=== PATIENT | male | born 1960 | race Caucasian/White ===

== ENCOUNTER 2020-05-17 10:33 | Emergency (ER) | payer BC ==
[2020-05-17] MEDS ORDERED: MORPHINE SULFATE 4 MG INJ IM ONE (10:54)
[2020-05-17] MEDS ORDERED: MORPHINE SULFATE 4 MG INJ ONE (11:07)
--- NOTE | 2020-05-17 11:42 | ERPHSYRPT ---
- History of Present Illness Time Seen by Provider: 05/17/20 10:33 Source: patient Exam Limitations: no limitations Patient Subjective Stated Complaint: Pt states "I slipped on the ice yesterday and hit my back, it got better but last night I rolled over and felt a pop in my lower right ribs." Triage Nursing Assessment: PT presented alert and oriented X 3, skin pwd Pt ambulates with an upright steady gait, able to speak in clear full sentences pt has tenderness to the right lower posterior rib. Physician History: 59 years old male presented in the ER with chief complaint of right lower chest/flank pain since yesterday after he slipped on ice and fell against steps edges. Did not hit his head. No loss of consciousness. Patient did not have much pain until last night when he heard a popping sound in the right lower chest/abdominal area when he took a turn and since then is moderate to severe sharp shooting pain which is aggravated with deep breathing, movements, ambulation and better with being still. Denies any nausea vomiting cough shortness of breath. Denies any back pain. No injury anywhere else. Occurred: yesterday Reason for Fall: slipped Injuries/Pain Location: chest, abdomen Loss of Consciousness: no loss of consciousness Quality: sharpness Severity of Pain-Max: moderate Severity of Pain-Current: moderate Modifying Factors: Improves With: immobilization, rest. Worsens With: movement Associated Symptoms (Fall): abdominal pain, muscle spasms, No back pain, No s hortness of breath Allergies/Adverse Reactions: bee venom protein (honey bee) Allergy (Severe, Verified 05/17/20 10:46) Swelling Hx Tetanus, Diphtheria Vaccination/Date Given: No Hx Influenza Vaccination/Date Given: No Hx Pneumococcal Vaccination/Date Given: No Immunizations Up to Date: Yes Travel Risk - International Travel Have you traveled outside of the country in past 3 weeks: No - Coronavirus Screening Are you exhibiting any of the following symptoms?: No Close contact with a COVID-19 positive Pt in past 14-21 Days: No - Review of Systems Constitutional: No Symptoms Eyes: No Symptoms Ears, Nose, & Throat: No Symptoms Respiratory: No Symptoms Cardiac: Chest Pain Abdominal/Gastrointestinal: Abdominal Pain Genitourinary Symptoms: No Symptoms Musculoskeletal: Myalgias Skin: No Symptoms Neurological: No Symptoms Psychological: No Symptoms Endocrine: No Symptoms Hematologic/Lymphatic: No Symptoms Immunological/Allergic: No Symptoms - Past Medical History Neurological History: No Pertinent History Cardiac History: No Pertinent History Respiratory History: No Pertinent History Endocrine Medical History: No Pertinent History Musculoskeletal History: Osteoarthritis Other Medical History: History of B knee OA. - Past Surgical History Past Surgical History: Yes Other Surgical History: left arm - Social History Smoking Status: Former smoker Exposure to second hand smoke: No Drug Use: none Patient Lives Alone: No - Nursing Vital Signs Nursing Vital Signs: Initial Vital Signs Temperature 97.9 F 05/17/20 10:38 Pulse Rate 66 05/17/20 10:38 Respiratory Rate 22 05/17/20 10:38 Blood Pressure 202/110 05/17/20 10:38 O2 Sat by Pulse Oximetry 96 05/17/20 10:38 Pain Scale Pain Intensity 2 - [place] Coma Score Best Eye Response ([place]): (4) open spontaneously Best Verbal Response (Chaitanya): (5) oriented Best Motor Response (Chaitanya): (6) obeys commands [place] Total: 15 - Physical Exam General Appearance: no apparent distress, alert Head Injury: no evidence of injury Eye Exam: PERRL/EOMI, eyes nml inspection ENT Exam: airway nml, evidence of ENT injury Neck Exam: supple, trachea midline, full range of motion, normal alignment Respiratory/Chest Exam: chest tenderness (Right lower anterolateral ribs. No crepitus.), normal breath sounds, No subcutaneous emphysema, No paradoxical movements Cardiovascular Exam: normal heart sounds, regular rate/rhythm Gastrointestinal Exam: soft, normal bowel sounds, tenderness (Right flank/right upper quadrant) Back Exam: normal inspection, normal range of motion Extremity Exam: normal inspection, normal range of motion Neurologic Exam: alert, oriented x 3, cooperative Skin Exam: normal color, warm SpO2 Interpretation: normal SpO2: 96 O2 Delivery: Room Air Ordered Tests: Active Orders 24 hr Category Date Time Status ABDOMEN AND PELVIS W CONTRAST [CT] Stat Exams 05/17/20 11:18 Taken CHEST WITH CONTRAST [CT] Stat Exams 05/17/20 11:18 Taken RIBS UNILATERAL Stat Exams 05/17/20 11:14 Taken CBC W DIFF Stat Lab 05/17/20 11:45 Completed CMP Stat Lab 05/17/20 11:45 Completed UA W/RFX UR CULTURE Stat Lab 05/17/20 12:25 Completed Medication Summary Discontinued Medications Generic Name Dose Route Start Last Admin Trade Name Osiris PRN Reason Stop Dose Admin Clonidine 0.2 mg 05/17/20 12:36 05/17/20 12:42 Catapres 0.1 Mg PO 05/17/20 12:37 0.2 mg STAT ONE Administration Clonidine Confirm 05/17/20 12:41 Catapres 0.1 Mg Administered 05/17/20 12:42 Dose 0.2 mg .ROUTE .STK-MED ONE Morphine Sulfate 4 mg 05/17/20 10:54 05/17/20 11:12 Morphine Sulfate 4 Mg Inj IM 05/17/20 10:55 4 mg STAT ONE Administration Morphine Sulfate Confirm 05/17/20 11:07 Morphine Sulfate 4 Mg Inj Administered 05/17/20 11:08 Dose 4 mg .ROUTE .STK-MED ONE Lab/Rad Data: Laboratory Result Diagrams 05/17/20 11:45 05/17/20 11:45 Laboratory Results 05/17/20 05/17/20 05/17/20 Range/Units 12:25 11:45 11:45 WBC 7.3 (4.0-10.5) K/mm3 RBC 5.07 (4.1-5.6) M/mm3 Hgb 14.9 (12.5-18.0) gm/dl Hct 44.4 (42-50) % MCV 87.6 (78-100) fl MCH 29.4 (26-32) pg MCHC 33.6 (32-36) g/dl RDW 12.7 (11.5-14.0) % Plt Count 245 (150-450) K/mm3 MPV 9.6 (7.5-11.0) fl Gran % 59.5 (36.0-66.0) % Eos # (Auto) 0.37 (0-0.5) Absolute Lymphs (auto) 2.08 (1.0-4.6) Absolute Monos (auto) 0.50 (0.0-1.3) Lymphocytes % 28.3 (24.0-44.0) % Monocytes % 6.8 (0.0-12.0) % Eosinophils % 5.0 (0.00-5.0) % Basophils % 0.4 (0.0-0.4) % Absolute Granulocytes 4.36 (1.4-6.9) Basophils # 0.03 (0-0.4) Sodium 137 (137-145) mmol/L Potassium 3.8 (3.5-5.1) mmol/L Chloride 104 (98-107) mmol/L Carbon Dioxide 23 (22-30) mmol/L Anion Gap 14.2 (5-15) MEQ/L BUN 17 (9-20) mg/dL Creatinine 0.77 (0.66-1.25) mg/dL Estimated GFR > 60.0 ML/MIN Glucose 158 H (74-106) mg/dL Calcium 9.1 (8.4-10.2) mg/dL Total Bilirubin 0.50 (0.2-1.3) mg/dL AST 32 (17-59) U/L ALT 40 (0-50) U/L Alkaline Phosphatase 67 (38-126) U/L Serum Total Protein 7.9 (6.3-8.2) g/dL Albumin 4.6 (3.5-5.0) g/dL Urine Color YELLOW (YELLOW) Urine Appearance CLEAR (CLEAR) Urine pH 5.0 (5-6) Ur Specific [place] 1.057 (1.005-1.025) Urine Protein NEGATIVE (Negative) Urine Ketones NEGATIVE (NEGATIVE) Urine Blood NEGATIVE (0-5) Amadou/ul Urine Nitrite NEGATIVE (NEGATIVE) Urine Bilirubin NEGATIVE (NEGATIVE) Urine Urobilinogen NEGATIVE (0-1) mg/dL Ur Leukocyte Esterase NEGATIVE (NEGATIVE) Urine WBC (Auto) NONE (0-5) /HPF Urine RBC (Auto) NONE (0-2) /HPF U Epithel Cells (Auto) NONE (FEW) /HPF Urine Bacteria (Auto) NONE (NEGATIVE) /HPF Urine Mucus (Auto) SLIGHT (NEGATIVE) /HPF Urine Culture Reflexed NO (NO) Urine Glucose NEGATIVE (NEGATIVE) mg/dL - Progress Progress: improved, pain not gone completely, re-examined Progress Note: 05/17/20 13:19 59 years old is evaluated for fall with right lower rib/flank area tenderness. He is given morphine for symptomatic relief. X-rays showed 11th rib fracture wi th no pneumothorax. With lower rib fractures right next to the liver and flank tenderness I have obtained CT chest and abdomen pelvis with contrast which ruled out any acute intrathoracic and intra-abdominal pathology/bleed. Patient is feeling better on reevaluation. Patient blood pressure was 202/115 which did not improve with pain medication. I have given him clonidine and improved to 159 systolic. Patient report he does not take any blood pressure medication but with this high blood pressure I think patient has hypertension, I would start him on small dose of Cozaar and clonidine to take as needed. Recommended blood pressure monitoring and outpatient follow-up with his primary care for reevaluation. At this point he does not have any headache chest pain/shortness of breath or abdominal pain suggesting acute endorgan compromise. Discussed signs symptoms of worsening needing return to ER which he seems understanding. Stable for discharge. Counseled pt/family regarding: lab results, diagnosis, need for follow-up, rad results - Departure Departure Disposition: Home Clinical Impression: Uncontrolled hypertension Rib fracture Qualifiers: Encounter type: initial encounter Rib fracture type: single rib Fracture type: closed Laterality: right Qualified Code(s): S22.31XA - Fracture of one rib, right side, initial encounter for closed fracture Fall Qualifiers: Encounter type: initial encounter Qualified Code(s): W19.XXXA - Unspecified fall, initial encounter Condition: Stable Critical Care Time: No Referrals: DOCTOR,NO FAMILY [NON-STAFF PHY W/O PRIVILEGES] - BRADEN VANG MD [Primary Care Provider] - (1-2 DAYS FOR RE EVALUATION) Instructions: High Blood Pressure in Adults, Rib Fracture (DC) Additional Instructions: Do deep breathing exercises. Monitor your blood pressure regularly, keep a log and follow-up with primary care. Take pain medications as needed. Take clonidine 0.1 mg for blood pressure greater than 160 systolic and do not take more than 2 pills in 24 hours each 8 hours apart. Return to ER if for u ncontrolled hypertension or if you develop headache, visual disturbance, chest pain or shortness of breath. Prescriptions: Clonidine HCl 0.1 mg [Catapres 0.1 MG] 0.1 mg PO Q12H PRN PRN 10 Days #10 tablet PRN Reason: Hypertension Losartan Potassium [Cozaar] 25 mg PO DAILY #30 tablet Hydrocodone/Acetaminophen [[place] 7.5-325 Tablet] 1 each PO Q4-6HPRN PRN 3 Days #12 tablet MDD 4 PRN Reason: Pain
[2020-05-17 12:07] LABS: Absolute Neutrophil Ct (ANC) 4.36 (1.4-6.9); BASOPHIL % 0.4 % (0.0-0.4); Basophil (Absolute #) 0.03 (0-0.4); Eosinophil (Absolute #) 0.37 (0-0.5); Hematocrit 44.4 % (42-50); Hemoglobin 14.9 gm/dl (12.5-18.0); Lymphocyte (Absolute #) 2.08 (1.0-4.6); Lymphocytes % 28.3 % (24.0-44.0); Mean Cell Volume 87.6 fl (78-100); Mean Corpuscular Hemoglobin 29.4 pg (26-32); Mean Corpuscular Hgb Concent. 33.6 g/dl (32-36); Mean Platelet Volume 9.6 fl (7.5-11.0); Monocytes % 6.8 % (0.0-12.0); Neutrophil % 59.5 % (36.0-66.0); Platelet Count 245 K/mm3 (150-450); Red Blood Count 5.07 M/mm3 (4.1-5.6); Red Cell Distribution Width 12.7 % (11.5-14.0); White Blood Count 7.3 K/mm3 (4.0-10.5)
[2020-05-17 12:24] LABS: ALBUMIN 4.6 g/dL (3.5-5.0); ALKALINE PHOSPHATASE 67 U/L (38-126); ANION GAP 14.2 MEQ/L (5-15); BLOOD UREA NITROGEN 17 mg/dL (9-20); CHLORIDE 104 mmol/L (98-107); Calcium 9.1 mg/dL (8.4-10.2); Carbon Dioxide 23 mmol/L (22-30); Creatinine 1 0.77 mg/dL (0.66-1.25); EST GLOMERULAR FILTRATION RATE > 60.0 ML/MIN; Glucose 158 mg/dL (74-106); Potassium 3.8 mmol/L (3.5-5.1); SGOT/AST 32 U/L (17-59); SGPT/ALT 40 U/L (0-50); SODIUM 137 mmol/L (137-145); Total Protein 7.9 g/dL (6.3-8.2)
[2020-05-17] MEDS ORDERED: Catapres 0.1 MG PO ONE (12:36)
[2020-05-17] MEDS ORDERED: Catapres 0.1 MG ONE (12:41)
[2020-05-17 13:07] LABS: Appearance CLEAR (CLEAR); Bilirubin NEGATIVE (NEGATIVE); Blood NEGATIVE Ery/ul (0-5); Glucose NEGATIVE (NEGATIVE); Ketones NEGATIVE (NEGATIVE); Leukocyte Esterase NEGATIVE (NEGATIVE); Mucus SLIGHT /HPF (NEGATIVE); Nitrite NEGATIVE (NEGATIVE); Protein,Urine Dip NEGATIVE (Negative); Specific Gravity 1.057 (1.005-1.025); Urobilinogen NEGATIVE mg/dL (0-1)
[2020-05-17 13:33] VITALS: BP 150/106; PULSE 76
[2020-05-17 13:53] VITALS: O2SAT 96
--- NOTE | 2020-05-17 18:35 | XRAY ---
Indication: Right rib/right upper quadrant pain following fall. Multiple contiguous axial images obtained through the abdomen and pelvis using 100 cc Isovue 370 contrast. Comparison: None CT chest reported separately. Noncontrasted stomach and bowel loops appear nonobstructed. No free fluid/air. Remaining liver, gallbladder, pancreas, spleen, adrenal glands, kidneys, ureters, and bladder appear normal in CT appearance and attenuation. Minimal scattered aortoiliac calcifications. No AAA or pathological retroperitoneal lymphadenopathy. Nondisplaced right posterior 11 rib fracture and healing right 12 rib fracture. Remaining osseous structures are unremarkable Impression: 1. Nondisplaced right 11 rib fracture and healing right 12 rib fracture[address] 2[address] Remaining CT abdomen/pelvis with contrast exam is negative. Comment: Preliminary interpretation was made by [facility]. No critical discrepancy.
--- NOTE | 2020-05-17 18:35 | XRAY ---
Indication: Pain following fall. Comparison: None 2 view right ribs demonstrates nondisplaced 11 rib fracture. No other bony, articular, or soft tissue abnormalities.
--- NOTE | 2020-05-17 18:38 | XRAY ---
Indication: Right rib/right upper quadrant pain following fall. Multiple contiguous axial images obtained through the chest using 100 cc Isovue 370 contrast. Comparison: None Lungs demonstrates minimal bilateral dependent atelectasis. No suspicious pulmonary mass, infiltrate, effusion, or pneumothorax. Heart is not enlarged. Aorta is normal in course and caliber. No pathologic mediastinal/hilar lymphadenopathy. Bony thorax demonstrates nondisplaced posterior right [address] abdomen/pelvis reported separately. Impression: Nondisplaced right [address] chest with contrast exam is negative. Comment: Preliminary interpretation was made by [facility]. No critical discrepancy.
== END 2020-05-17 13:33 | disposition home or self-care (01) ==
LOC: ED 10:33
DX: S22.31XA Fracture of one rib, right side, initial encounter for closed fracture (principal); R07.9 Chest pain, unspecified; W00.0XXA Fall on same level due to ice and snow, initial encounter; M79.10 Myalgia, unspecified site; I10 Essential (primary) hypertension
CPT/HCPCS: 36000; 36415; 71100; 71260; 74177; 80053; 81001; 85025; 96372; 99284; J2270; A9270-GY

== ENCOUNTER 2021-04-10 18:33 | Observation (INO) | payer BC ==
--- NOTE | 2021-04-10 19:03 | ERPHSYRPT ---
- History of Present Illness Time Seen by Provider: 04/10/21 18:57 Source: patient, family Exam Limitations: no limitations Patient Subjective Stated Complaint: Pt is positive for covid and his oxygen was dropping to 88-89% at home and he was having difficulty breathing so he came to the ER Triage Nursing Assessment: Pt brought to the ER by his , tachycardic, tachypnic, febrile, was tested positive for covid 04/02/2021, skin clammy, pulses bounding, non productive cough Physician History: Pt is recent Covid 8 days out now with increasing SObreath and now fever. No prior PE or CAD reported per pt. No abd pain or symptoms,. got down in upper 80s on home pulse Ox and in ER initial but now 90s on RA. no steroids yet per pt. Timing/Duration: today Severity of Dyspnea-Max: moderate Severity of Dyspnea-Current: moderate Possible Cause: no prior episodes Associated Symptoms: cough, fever Allergies/Adverse Reactions: bee venom protein (honey bee) Allergy (Severe, Verified 04/10/21 18:45) Swelling Hx Tetanus, Diphtheria Vaccination/Date Given: No Hx Influenza Vaccination/Date Given: No Hx Pneumococcal Vaccination/Date Given: No Travel Risk - International Travel Have you traveled outside of the country in past 3 weeks: No - Coronavirus Screening Are you exhibiting any of the following symptoms?: Yes Symptoms: Fever, Cough: New Onset, Shortness of Breath, Loss of Taste or Smell - Vaccine Status Have you recieved a Covid-19 vaccination: No - Review of Systems Constitutional: No Fever, No Chills Eyes: No Symptoms Ears, Nose, & Throat: No Symptoms Respiratory: Cough, Dyspnea Cardiac: No Chest Pain, No Edema, No Syncope Abdominal/Gastrointestinal: No Abdominal Pain, No Nausea, No Vomiting, No Diarrhea Genitourinary Symptoms: No Dysuria Musculoskeletal: No Back Pain, No Neck Pain Skin: No Rash Neurological: No Dizziness, No Focal Weakness, No Sensory Changes Psychological: No Symptoms Endocrine: No Symptoms All Other Systems: Reviewed and Negative - Past Medical History Pertinent Past Medical History: Yes Neurological History: No Pertinent History Cardiac History: No Pertinent History Respiratory History: No Pertinent History Endocrine Medical History: No Pertinent History Musculoskeletal History: Osteoarthritis Other Medical History: History of B knee OA. - Past Surgical History Past Surgical History: Yes Other Surgical History: left arm - Social History Smoking Status: Former smoker Exposure to second hand smoke: No Drug Use: none Patient Lives Alone: No - Nursing Vital Signs Nursing Vital Signs: Initial Vital Signs Temperature 101.5 F 04/10/21 18:34 Pulse Rate 104 H 04/10/21 18:34 Respiratory Rate 39 H 04/10/21 18:34 Blood Pressure 124/81 04/10/21 18:34 O2 Sat by Pulse Oximetry 93 L 04/10/21 18:34 Pain Scale Pain Intensity 0 - Physical Exam General Appearance: no apparent distress, alert Eye Exam: PERRL/EOMI Ears, Nose, Throat Exam: normal pharynx Neck Exam: normal inspection, supple Respiratory Exam: airway intact, rhonchi Cardiovascular/Chest Exam: normal heart sounds, regular rate/rhythm Abdominal/Gastrointestinal Exam: soft, No tenderness, No distention, No mass Extremity Exam: non-tender, normal range of motion, normal inspection, no calf tenderness, no pedal edema Peripheral Pulses Exam: carotid (R): 2+, carotid (L): 2+, femoral (R): 2+, femoral (L): 2+, dorsalis-pedis (R): 2+, dorsalis-pedis (L): 2+ Neurologic Exam: alert, oriented x 3, cooperative, potato chip maker II-XII nml as tested, normal mood/affect, nml cerebellar function, nml station & gait, sensation nml, No motor deficits Skin Exam: normal color, warm, No dry SpO2 Interpretation: borderline oxygenation SpO2: 93 O2 Delivery: Room Air - Course Nursing assessment & vital signs reviewed: Yes EKG Interpreted by Me: Sinus Tach, NORMAL AXIS, NORMAL INTERVALS, Non-specific ST Changes, Other (low voltage) - Radiology Exams Chest X-ray Interpretation: Interpreted by me, Reviewed by me, Pneumonia (Covid) - CT Exams Chest CT Interpretation: Tele-radiologist Report, No PE, Pneumonia (Covid) Ordered Tests: Active Orders 24 hr Category Date Time Status Physicist Astrophysics STAT Care 04/10/21 19:06 Active EKG-ER Only STAT Care 04/10/21 19:04 Active IV Insertion STAT Care 04/10/21 19:04 Active Pulse Oximetry (ED) STAT Care 04/10/21 19:04 Active CHEST 1 VIEW (PORTABLE) Stat Exams 04/10/21 19:05 Taken CHEST WITH CONTRAST [CT] Stat Exams 04/10/21 19:48 Taken CBC W DIFF Stat Lab 04/10/21 19:24 Completed CMP Stat Lab 04/10/21 19:24 Completed D-DIMER QUANTITATIVE Stat Lab 04/10/21 19:24 Completed INFLUENZA A+B RUSSELL Stat Lab 04/10/21 19:25 Completed Lactic Acid Stat Lab 04/10/21 19:04 Completed Manual Differential NC Stat Lab 04/10/21 19:24 Completed NT PRO BNP Stat Lab 04/10/21 19:24 Completed TROPONIN Q3H Lab 04/10/21 19:24 Completed TROPONIN Q3H Lab 04/10/21 22:30 Received TROPONIN Q3H Lab 04/11/21 01:15 Ordered TROPONIN Q3H Lab 04/11/21 04:15 Ordered TROPONIN Q3H Lab 04/11/21 07:15 Ordered UA W/RFX UR CULTURE Stat Lab 04/10/21 20:02 Completed Medication Summary Generic Name Dose Route Start Last Admin Trade Name Freq PRN Reason Stop Dose Admin Sodium Chloride 1,000 mls @ 100 mls/hr 04/10/21 19:15 04/10/21 19:15 Sodium Chloride 0.9% 1000 Ml IV 05/10/21 19:14 100 mls/hr .Q10H DEVONTE Administration Discontinued Medications Generic Name Dose Route Start Last Admin Trade Name Freq PRN Reason Stop Dose Admin Methylprednisolone Sodium 0 mg 04/10/21 19:04 04/10/21 19:14 Succinate 125 mg/ Sterile IV 04/10/21 19:05 125 mg Water 2 ml STAT ONE Administration Methylprednisolone Sodium Succinate Confirm 04/10/21 19:11 Methylprednis Sod Succ 125 Mg/2 Ml Vial Administered 04/10/21 19:12 Dose 125 mg .ROUTE .STK-MED ONE Lab/Rad Data: Laboratory Result Diagrams 04/10/21 19:24 04/10/21 19:24 Laboratory Results 04/10/21 04/10/21 04/10/21 Range/Units 20:02 19:25 19:24 WBC (4.0-10.5) K/mm3 RBC (4.1-5.6) M/mm3 Hgb (12.5-18.0) gm/dl Hct (42-50) % MCV (78-100) fl MCH (26-32) pg MCHC (32-36) g/dl RDW (11.5-14.0) % Plt Count (150-450) K/mm3 MPV (7.5-11.0) fl Segmented Neutrophils (36.-66.) % Band Neutrophils (0.0-2.0) % Lymphocytes (Manual) (24-44) % Monocytes (Manual) (0.0-12.0) % Atypical Lymphocytes % Platelet Estimate (NORMAL) RBC Morphology D-Dimer (215-500) ng/mL Sodium (137-145) mmol/L Potassium (3.5-5.1) mmol/L Chloride (98-107) mmol/L Carbon Dioxide (22-30) mmol/L Anion Gap (5-15) MEQ/L BUN (9-20) mg/dL Creatinine (0.66-1.25) mg/dL Estimated GFR ML/MIN Glucose (74-106) mg/dL Lactic Acid (0.4-2.0) Calcium (8.4-10.2) mg/dL Total Bilirubin (0.2-1.3) mg/dL AST (17-59) U/L ALT (0-50) U/L Alkaline Phosphatase (38-126) U/L Troponin I < 0.012 (0.000-0.034) ng/mL NT-Pro-B Natriuret Pep (0-900) pg/mL Serum Total Protein (6.3-8.2) g/dL Albumin (3.5-5.0) g/dL Urine Color YELLOW (YELLOW) Urine Appearance SLIGHTLY CLOUDY (CLEAR) Urine pH 5.0 (5-6) Ur Specific [place] 1.019 (1.005-1.025) Urine Protein 30 (Negative) Urine Ketones NEGATIVE (NEGATIVE) Urine Blood NEGATIVE (0-5) Amadou/ul Urine Nitrite NEGATIVE (NEGATIVE) Urine Bilirubin NEGATIVE (NEGATIVE) Urine Urobilinogen NEGATIVE (0-1) mg/dL Ur Leukocyte Esterase NEGATIVE (NEGATIVE) Urine WBC (Auto) NONE (0-5) /HPF Urine RBC (Auto) NONE (0-2) /HPF U Epithel Cells (Auto) NONE (FEW) /HPF Urine Bacteria (Auto) NONE SEEN (NEGATIVE) /HPF Urine Mucus (Auto) SLIGHT (NEGATIVE) /HPF Urine Culture Reflexed NO (NO) Urine Glucose NEGATIVE (NEGATIVE) mg/dL Influenza Type A Ag NEGATIVE (NEGATIVE) Influenza Type B Ag NEGATIVE (NEGATIVE) 04/10/21 04/10/21 04/10/21 Range/Units 19:24 19:24 19:24 WBC 5.1 (4.0-10.5) K/mm3 RBC 4.91 (4.1-5.6) M/mm3 Hgb 14.5 (12.5-18.0) gm/dl Hct 42.7 (42-50) % MCV 87.0 (78-100) fl MCH 29.5 (26-32) pg MCHC 34.0 (32-36) g/dl RDW 11.9 (11.5-14.0) % Plt Count 167 (150-450) K/mm3 MPV 10.0 (7.5-11.0) fl Segmented Neutrophils 67 H (36.-66.) % Band Neutrophils 4 H (0.0-2.0) % Lymphocytes (Manual) 16 L (24-44) % Monocytes (Manual) 7 (0.0-12.0) % Atypical Lymphocytes 6 % Platelet Estimate NORMAL (NORMAL) RBC Morphology NORMAL D-Dimer 661 H* (215-500) ng/mL Sodium 127 L (137-145) mmol/L Potassium 4.0 (3.5-5.1) mmol/L Chloride 92 L (98-107) mmol/L Carbon Dioxide 25 (22-30) mmol/L Anion Gap 14.0 (5-15) MEQ/L BUN 24 H (9-20) mg/dL Creatinine 1.13 (0.66-1.25) mg/dL Estimated GFR > 60.0 ML/MIN Glucose 114 H (74-106) mg/dL Lactic Acid (0.4-2.0) Calcium 8.6 (8.4-10.2) mg/dL Total Bilirubin 0.60 (0.2-1.3) mg/dL AST 47 (17-59) U/L ALT 43 (0-50) U/L Alkaline Phosphatase 73 (38-126) U/L Troponin I (0.000-0.034) ng/mL NT-Pro-B Natriuret Pep 23.9 (0-900) pg/mL Serum Total Protein 6.9 (6.3-8.2) g/dL Albumin 4.1 (3.5-5.0) g/dL Urine Color (YELLOW) Urine Appearance (CLEAR) Urine pH (5-6) Ur Specific [place] (1.005-1.025) Urine Protein (Negative) Urine Ketones (NEGATIVE) Urine Blood (0-5) Amadou/ul Urine Nitrite (NEGATIVE) Urine Bilirubin (NEGATIVE) Urine Urobilinogen (0-1) mg/dL Ur Leukocyte Esterase (NEGATIVE) Urine WBC (Auto) (0-5) /HPF Urine RBC (Auto) (0-2) /HPF U Epithel Cells (Auto) (FEW) /HPF Urine Bacteria (Auto) (NEGATIVE) /HPF Urine Mucus (Auto) (NEGATIVE) /HPF Urine Culture Reflexed (NO) Urine Glucose (NEGATIVE) mg/dL Influenza Type A Ag (NEGATIVE) Influenza Type B Ag (NEGATIVE) 04/10/21 Range/Units 19:04 WBC (4.0-10.5) K/mm3 RBC (4.1-5.6) M/mm3 Hgb (12.5-18.0) gm/dl Hct (42-50) % MCV (78-100) fl MCH (26-32) pg MCHC (32-36) g/dl RDW (11.5-14.0) % Plt Count (150-450) K/mm3 MPV (7.5-11.0) fl Segmented Neutrophils (36.-66.) % Band Neutrophils (0.0-2.0) % Lymphocytes (Manual) (24-44) % Monocytes (Manual) (0.0-12.0) % Atypical Lymphocytes % Platelet Estimate (NORMAL) RBC Morphology D-Dimer (215-500) ng/mL Sodium (137-145) mmol/L Potassium (3.5-5.1) mmol/L Chloride (98-107) mmol/L Carbon Dioxide (22-30) mmol/L Anion Gap (5-15) MEQ/L BUN (9-20) mg/dL Creatinine (0.66-1.25) mg/dL Estimated GFR ML/MIN Glucose (74-106) mg/dL Lactic Acid 1.3 (0.4-2.0) Calcium (8.4-10.2) mg/dL Total Bilirubin (0.2-1.3) mg/dL AST (17-59) U/L ALT (0-50) U/L Alkaline Phosphatase (38-126) U/L Troponin I (0.000-0.034) ng/mL NT-Pro-B Natriuret Pep (0-900) pg/mL Serum Total Protein (6.3-8.2) g/dL Albumin (3.5-5.0) g/dL Urine Color (YELLOW) Urine Appearance (CLEAR) Urine pH (5-6) Ur Specific [place] (1.005-1.025) Urine Protein (Negative) Urine Ketones (NEGATIVE) Urine Blood (0-5) Amadou/ul Urine Nitrite (NEGATIVE) Urine Bilirubin (NEGATIVE) Urine Urobilinogen (0-1) mg/dL Ur Leukocyte Esterase (NEGATIVE) Urine WBC (Auto) (0-5) /HPF Urine RBC (Auto) (0-2) /HPF U Epithel Cells (Auto) (FEW) /HPF Urine Bacteria (Auto) (NEGATIVE) /HPF Urine Mucus (Auto) (NEGATIVE) /HPF Urine Culture Reflexed (NO) Urine Glucose (NEGATIVE) mg/dL Influenza Type A Ag (NEGATIVE) Influenza Type B Ag (NEGATIVE) - Progress Progress: improved, re-examined Air Movement: good Progress Note: 04/10/21 19:49 pt has elevated D dimer, discussed risk/benefit and pt wishes to proceed with CT PE protocol. 04/10/21 22:[address] Pizano and pt and will place on obs for covid and hypoxia and all agree. Blood Culture(s) Obtained: No Antibiotics given: No Will see patient in: hospital (observation) Counseled pt/family regarding: lab results, diagnosis, need for follow-up, rad results - Departure Departure Disposition: Observation Clinical Impression: Pneumonia due to COVID-19 virus Condition: Good Critical Care Time: No Referrals: BRADEN VANG MD [Primary Care Provider] - Follow up/PCP as directed
[2021-04-10] MEDS ORDERED: solu-MEDROL 125 MG, Sterile H2O 10 ml 2 ML IV ONE ×2 (19:04)
[2021-04-10] MEDS ORDERED: solu-MEDROL ONE (19:11)
[2021-04-10] MEDS: Sodium Chloride 0.9% 1000 ML 1,000 ML IV SCH (19:15)
[2021-04-10 19:28] LABS: Hematocrit 42.7 % (42-50); Hemoglobin 14.5 gm/dl (12.5-18.0); Mean Corpuscular Hemoglobin 29.5 pg (26-32); Platelet Count 167 K/mm3 (150-450); Red Blood Count 4.91 M/mm3 (4.1-5.6); Red Cell Distribution Width 11.9 % (11.5-14.0); White Blood Count 5.1 K/mm3 (4.0-10.5)
[2021-04-10 19:46] LABS: INFLUENZA A NEGATIVE (NEGATIVE); INFLUENZA B NEGATIVE (NEGATIVE)
[2021-04-10 19:49] LABS: ALBUMIN 4.1 g/dL (3.5-5.0); ALKALINE PHOSPHATASE 73 U/L (38-126); BLOOD UREA NITROGEN 24 mg/dL (9-20); CHLORIDE 92 mmol/L (98-107); Calcium 8.6 mg/dL (8.4-10.2); Carbon Dioxide 25 mmol/L (22-30); Creatinine 1 1.13 mg/dL (0.66-1.25); EST GLOMERULAR FILTRATION RATE > 60.0 ML/MIN; Glucose 114 mg/dL (74-106); NT PRO BNP 23.9 pg/mL (0-900); SGOT/AST 47 U/L (17-59); SGPT/ALT 43 U/L (0-50); SODIUM 127 mmol/L (137-145); Total Protein 6.9 g/dL (6.3-8.2)
[2021-04-10 20:03] LABS: ATYPICAL LYMPHS 6 %; BAND 4 % (0.0-2.0); Lymphocytes 16 % (24-44); Monocyte 7 % (0.0-12.0); Neutrophils 67 % (36.-66.); Platelet Estimate NORMAL (NORMAL); Total Cells Counted 100
[2021-04-10 20:09] LABS: Appearance SLIGHTLY CLOUDY (CLEAR); Bilirubin NEGATIVE (NEGATIVE); Blood NEGATIVE Ery/ul (0-5); Glucose NEGATIVE (NEGATIVE); Ketones NEGATIVE (NEGATIVE); Leukocyte Esterase NEGATIVE (NEGATIVE); Mucus SLIGHT /HPF (NEGATIVE); Nitrite NEGATIVE (NEGATIVE); Protein,Urine Dip 30 (Negative); Specific Gravity 1.019 (1.005-1.025); Urobilinogen NEGATIVE mg/dL (0-1)
[2021-04-10 20:20] LABS: Bacteria NONE SEEN /HPF (NEGATIVE)
[2021-04-11] MEDS ORDERED: HUMULIN R SQ PRN (00:07)
[2021-04-11] MEDS ORDERED: Combivent Inhaler COMMON CANISTER IH SCH (00:07)
[2021-04-11] MEDS ORDERED: REMDESIVIR 200 MG in Sodium Chloride 0.9% 250 ML 250 ML IV ONE (00:53)
[2021-04-11] MEDS ORDERED: FEVERALL 650 MG PR PRN (01:00)
[2021-04-11] MEDS ORDERED: TYLENOL EXTRA STRENGTH 500 MG PO PRN (01:00)
[2021-04-11] MEDS ORDERED: HYDROCODONE-CHLORPHEN ER SUSP PO PRN (01:01)
[2021-04-11] MEDS ORDERED: Zofran 4 MG/2 ML VIAL IV PRN (01:01)
[2021-04-11] MEDS ORDERED: REMDESIVIR IV ONE (01:04)
[2021-04-11] MEDS ORDERED: Sodium Chloride 0.9% 250 ML 250 ML IV ONE (01:04)
[2021-04-11] MEDS ORDERED: VENTOLIN COMMON CANISTER IH PRN (01:18)
[2021-04-11 04:55] LABS: Hemoglobin 13.2 gm/dl (12.5-18.0); Mean Corpuscular Hemoglobin 29.8 pg (26-32); Mean Corpuscular Hgb Concent. 33.8 g/dl (32-36); Mean Platelet Volume 9.6 fl (7.5-11.0); Platelet Count 173 K/mm3 (150-450); Red Blood Count 4.43 M/mm3 (4.1-5.6); White Blood Count 2.5 K/mm3 (4.0-10.5)
[2021-04-11 05:18] LABS: ALBUMIN 3.7 g/dL (3.5-5.0); ALKALINE PHOSPHATASE 56 U/L (38-126); ANION GAP 14.6 MEQ/L (5-15); BLOOD UREA NITROGEN 28 mg/dL (9-20); CHLORIDE 95 mmol/L (98-107); Carbon Dioxide 25 mmol/L (22-30); Creatinine 1 1.17 mg/dL (0.66-1.25); EST GLOMERULAR FILTRATION RATE > 60.0 ML/MIN; Glucose 161 mg/dL (74-106); NT PRO BNP 32.2 pg/mL (0-900); Potassium 4.4 mmol/L (3.5-5.1); SGOT/AST 37 U/L (17-59); SGPT/ALT 38 U/L (0-50); SODIUM 130 mmol/L (137-145); Total Protein 6.2 g/dL (6.3-8.2)
[2021-04-11 06:29] LABS: ATYPICAL LYMPHS 1 %; BAND 3 % (0.0-2.0); Lymphocytes 23 % (24-44); Monocyte 3 % (0.0-12.0); Neutrophils 70 % (36.-66.); Platelet Estimate NORMAL (NORMAL); Total Cells Counted 100
[2021-04-11] MEDS: Ativan 1 MG PO SCH (07:13)
--- NOTE | 2021-04-11 07:17 | XRAY ---
Indication: Short of breath. Positive Covid 19. Elevated d-dimer. Multiple contiguous axial images obtained through the chest using 80 cc Isovue-370 contrast and PE protocol. Comparison: May 17, 2020. Good opacification of the pulmonary arteries to include the lobar and segmental branches. However mild respiration artifact limits evaluation for pulmonary embolus. No obvious pulmonary embolus. Heart not enlarged. Aorta is normal in course and caliber. No pathologic mediastinal/hilar lymphadenopathy. New small hiatal hernia. Lungs demonstrate new diffuse bilateral patchy groundglass airspace disease and bibasilar subsegmental atelectasis/scarring. No effusion or pneumothorax. Bony thorax intact. Limited upper abdomen demonstrates fatty liver. Impression: 1. Negative pulmonary embolus. 2. New diffuse bilateral patchy groundglass airspace disease. Commonly reported imaging features of Covid 19 pneumonia are present. Other processes such as influenza pneumonia and organizing pneumonia, as can be seen with drug toxicity and connective tissue disease, can cause a similar imaging pattern. 3. Incidental fatty liver and small hiatal hernia. Comment: Preliminary interpretation made by [facility]. No critical discrepancy.
--- NOTE | 2021-04-11 07:21 | XRAY ---
Indication: Short of breath. Suspect Covid 19. Comparison: None Portable chest demonstrates mild diffuse bilateral patchy airspace disease without consolidation/large effusion. Remaining heart and bony thorax unremarkable.
[2021-04-11] MEDS ORDERED: Ativan 1 MG PO PRN ×2 (07:30→09:53)
[2021-04-11] MEDS: Sodium Chloride 0.9% 1000 ML 1,000 ML IV SCH (07:41)
[2021-04-11] MEDS ORDERED: NON-FORMULARY ITEM (Losartan Potassium [Cozaar] 25 MG Tablet) PO SCH (10:00)
[2021-04-11] MEDS ORDERED: Sodium Chloride 0.9% 10 ML FLUSH Syringe IV PRN (10:00)
[2021-04-11] MEDS: ENOXAPARIN SODIUM SQ SCH (10:52)
[2021-04-11] MEDS: Cozaar 50 MG PO SCH (10:53)
[2021-04-11] MEDS: DECADRON 10MG INJ. IV SCH (10:53)
[2021-04-11] MEDS: Sodium Chloride 0.9% 10 ML FLUSH Syringe IV SCH ×2 (14:30→23:26)
[2021-04-11] MEDS: REMDESIVIR 100 MG in Sodium Chloride 0.9% 100 ML BAG 100 ML IV SCH (16:45)
[2021-04-12 05:59] LABS: Hematocrit 40.5 % (42-50); Hemoglobin 13.3 gm/dl (12.5-18.0); Mean Cell Volume 88.6 fl (78-100); Mean Corpuscular Hemoglobin 29.1 pg (26-32); Mean Corpuscular Hgb Concent. 32.8 g/dl (32-36); Mean Platelet Volume 9.6 fl (7.5-11.0); Platelet Count 254 K/mm3 (150-450); Red Blood Count 4.57 M/mm3 (4.1-5.6); Red Cell Distribution Width 12.2 % (11.5-14.0); White Blood Count 10.8 K/mm3 (4.0-10.5)
[2021-04-12 06:28] LABS: ALBUMIN 3.5 g/dL (3.5-5.0); ALKALINE PHOSPHATASE 55 U/L (38-126); BLOOD UREA NITROGEN 32 mg/dL (9-20); CHLORIDE 102 mmol/L (98-107); Calcium 8.1 mg/dL (8.4-10.2); Carbon Dioxide 28 mmol/L (22-30); Creatinine 1 1.05 mg/dL (0.66-1.25); EST GLOMERULAR FILTRATION RATE > 60.0 ML/MIN; Glucose 129 mg/dL (74-106); Potassium 4.5 mmol/L (3.5-5.1); SGOT/AST 36 U/L (17-59); SGPT/ALT 37 U/L (0-50); SODIUM 138 mmol/L (137-145); Total Protein 6.2 g/dL (6.3-8.2)
--- NOTE | 2021-04-12 09:32 | HP ---
CHIEF COMPLAINT: Shortness of breath. HISTORY OF PRESENT ILLNESS: A 60-year-old white male lives by himself. He said the last few days he had progressive shortness of breath where it has been quite a problem. He is a nonsmoker. No history of lung disease. He came to the hospital where he tested positive for COVID. His chest x-ray showed mild diffuse patchy airway disease. His white count was down to 2.5. They did CT of the lungs which showed no pulmonary emboli. EKG is normal. The D-dimer was only 424. MEDICATIONS: Losartan 25 mg q.d. ALLERGIES: BEE VENOM. PAST MEDICAL HISTORY: Bilateral knee osteoarthritis. PAST SURGICAL HISTORY: Left arm surgery. REVIEW OF SYSTEMS: HEENT: No problems hearing or seeing. CHEST: Short of breath on any exertion. Short of breath at rest sometimes. CVS: No history of heart problems or history of hypertension. ABDOMEN: No nausea or vomiting. EXTREMITIES: No pain. No swelling of feet. SOCIAL HISTORY: He is . He does not smoke or drink. He works at a steel factory. PHYSICAL EXAMINATION: The patient weighs about 190 pounds. HEENT: Pupils equal and reactive to light. NECK: Supple without adenopathy. CHEST: Clear. CVS: No murmurs or gallops. ABDOMEN: Slightly obese. No tenderness. EXTREMITIES: No cyanosis. No edema. Good peripheral pulses. IMPRESSION: The patient has COVID pneumonia with hyponatremia, leukopenia requiring 2 liters of oxygen. He is stable at this time. He also has mild hypertension for which he takes an ARB and will continue with that and anticoagulate him, start him on Decadron and Remdesivir. PROGNOSIS: Good.
[2021-04-12 09:58] VITALS: O2SAT 93
[2021-04-12] MEDS: DECADRON 10MG INJ. IV SCH (10:48)
[2021-04-12] MEDS: Cozaar 50 MG PO SCH (10:48)
[2021-04-12] MEDS: ENOXAPARIN SODIUM SQ SCH (10:49)
[2021-04-12] MEDS: REMDESIVIR 100 MG in Sodium Chloride 0.9% 100 ML BAG 100 ML IV SCH (12:59)
[2021-04-12 13:03] VITALS: BP 112/72; PULSE 72
--- NOTE | 2021-04-13 09:56 | DS ---
ADMISSION DIAGNOSES: 1) COVID hypoxia. 2) COVID pneumonia. DISCHARGE DIAGNOSES: 1) COVID HYPOXIA. 2) COVID PNEUMONIA. HOSPITAL COURSE: The patient is a 60-year-old white male who had been previously healthy with mild hypertension, for three or four days became progressively weak and short of breath. No GI symptoms. He is able to walk in the emergency room. However, there his O2 dropped down to 80's and he required 3 or 4 liters to get it up. He has a mild cough, not vaccinated. He does live with his who stayed here. His O2 in the 90's on 2 liters. His glucose was up to 129, creatinine within normal. White count was 10, hemoglobin 13. D-dimer was normal at 428. ALC 5.75 which is normal. White count initially was 2.5. Chest x-ray showed bilateral patchy airspace disease compatible with COVID. The patient did receive all four drugs for COVID and he did improve. He is feeling very good walking through the room without problems and will be discharged home on prednisone 40 mg x5, 20 mg x5, isolate for seven days. He will be on 2 liters of oxygen. He is to call if his O2 saturations go up. PROGNOSIS: Good.
== END 2021-04-12 15:28 | disposition home or self-care (01) ==
LOC: ED 18:33 → MED SURG 04-11 00:02
PROVIDERS: ADMIT Family Medicine; ATTEND Family Medicine
DX: U07.1 COVID-19 (principal); R09.02 Hypoxemia; J12.82 Pneumonia due to coronavirus disease 2019; R00.0 Tachycardia, unspecified; R06.82 Tachypnea, not elsewhere classified; R79.89 Other specified abnormal findings of blood chemistry; I10 Essential (primary) hypertension; Z87.891 Personal history of nicotine dependence; E87.1 Hypo-osmolality and hyponatremia; D72.819 Decreased white blood cell count, unspecified
CPT/HCPCS: 36000; 36415; 71045; 71260; 80053; 81001; 82947; 83036; 83605; 83880; 84484; 85025; 85027; 85379; 87400; 93005; 93041; 93268; 94760; 94762; 96374; 99285; G0378; J1100; J1650; J2930; A9270-GY